=== PATIENT | female | born 1965 | race Caucasian/White ===

== ENCOUNTER 2018-11-09 16:48 | Inpatient (IN) | payer OTHER ==
[2018-11-09] VITALS (9 sets, daily range): BP systolic 80–97; BP diastolic 38–55
--- NOTE | 2018-11-09 17:00 | NUR ---
WHILE AWAITING A ROOM ASSIGNMENT, PT STARTED TO HAVE A "HOT FLASH" WHERE SHE WAS FEELING LIKE SHE WAS SWEATING A LOT. PT STARTED HAVING A SEIZURE WHILE IN THE W/C. CALLED [facility] AND ASKED FOR ASSISTANCE. PT TAKEN TO ROOM 6.
[2018-11-09 18:31] LABS: HEMOGLOBIN 6.8 gm/dL (12.0-15.0); MCH 37.2 pg (26.0-34.0); RDW 18.3 % (10.5-14.5)
[2018-11-09 18:33] LABS: ABSOLUTE NEUTROPHILS 8.6 thou/uL (1.4-8.2); BASOPHILS 0.2 % (0.0-2.0); EOSINOPHILS 0.2 % (0.0-3.0); LYMPHOCYTES 30.7 % (24.0-44.0); MCHC 34.6 g/dL (28.0-37.0); MCV 107.4 fL (80.0-100.0); PLATELET COUNT 103 thou/uL (150-400); POLYS 63.9 % (36.0-66.0); RBC 1.82 mil/uL (4.20-5.00); WBC 13.5 thou/uL (4.0-11.0)
[2018-11-09 18:40] LABS: CALCIUM 9.9 mg/dL (8.5-10.1); CREATININE 1.9 mg/dL (0.6-1.0); POTASSIUM 3.6 mmol/L (3.5-5.1)
[2018-11-09 18:43] LABS: HEMATOCRIT 19.5 % (37.0-47.0); INR 1.5; PROTIME 15.2 Seconds (9.3-11.4)
[2018-11-09 18:45] LABS: ALBUMIN 2.6 g/dL (3.4-5.0); TOTAL BILIRUBIN 8.6 mg/dL (<0.1-1.0); TOTAL PROTEIN 5.9 g/dL (6.4-8.2)
[2018-11-09 19:15] LABS: ANISOCYTOSIS 1+; MACROCYTES 1+
[2018-11-10] VITALS (19 sets, daily range): BP systolic 80–116; BP diastolic 37–59
[2018-11-10 04:58] LABS: MCH 36.7 pg (26.0-34.0); MCHC 35.5 g/dL (28.0-37.0); MCV 103.4 fL (80.0-100.0); RBC 1.8 mil/uL (4.20-5.00); RDW 20.1 % (10.5-14.5); WBC 6.7 thou/uL (4.0-11.0)
[2018-11-10 05:00] LABS: HEMATOCRIT 18.6 % (37.0-47.0); HEMOGLOBIN 6.6 gm/dL (12.0-15.0)
[2018-11-10 05:05] LABS: CREATININE 1.4 mg/dL (0.6-1.0); MAGNESIUM 2.3 mg/dL (1.8-2.4); POTASSIUM 3.9 mmol/L (3.5-5.1)
--- NOTE | 2018-11-10 06:28 | NUR ---
Pt received into room 244 last pm, made comfortable in bed and monitor applied. See rhythm strips. Pt slept well all night with no c/o pain and no further evidence of bleeding. Pt asymptomatic with low BP and more alert this am. HR stable and SpO2 adequate on 4L of O2. Voided per bedpan without difficulty and no BM observed. Am lab results noted and 2nd unit of blood currently infusing. Continue with POC.
[2018-11-10 09:36] LABS: HEMATOCRIT 21.6 % (37.0-47.0); HEMOGLOBIN 7.7 gm/dL (12.0-15.0)
[2018-11-10 12:15] LABS: URINE BILIRUBIN 1+ (Negative); URINE BLOOD 1+ (Negative); URINE CLARITY CLEAR; URINE COLOR YELLOW; URINE GLUCOSE-RANDOM* NEGATIVE (Negative); URINE KETONES NEGATIVE (Negative); URINE NITRITE-REFLEX NEGATIVE (Negative); URINE PROTEIN (DIPSTICK) NEGATIVE (Negative); URINE SPECIFIC GRAVITY <= 1.005 (1.005-1.035)
[2018-11-10 12:16] LABS: URINE LEUKOCYTES-REFLEX 1+ (Negative)
[2018-11-10 12:17] LABS: ICTOTEST (BILI CONFIRMATORY) Positive (Negative)
--- NOTE | 2018-11-10 12:39 | NUR ---
Case opened to follow for support and dc planning. Pt is currently in the ICU with GIB and ethol withdrawal. [employer] Fabricator visited with the pt, her 18 year old dtr and one of her sisters at bedside. The pt was drowsy but able to answer assessment questions. The pt lives at home with her 18yr old dtr who is a senior in high school and her 15 yr old son. 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 She has not worked recently. She has been to [facility] in 2012 for ethol rehab. She is open to discussing options. Pt's dtr reports that they have social security income through her father who . She drives, works and goes to school with plans to graduate in November. She reports her uncle may be coming in town and has offered to assist financially with rehab. Pt has 2 sisters and 2 brothers who appear supportive and helpful to the pt's children. Cm role introduced. Will f/u when the pt is better able to participate in dc planning conversation. [employer] referral started. Pt's 15yr old son will need a medicaid application also. Support provided.
[2018-11-10 12:42] LABS: CASTS None Seen /LPF (None Seen); SQUAMOUS 0-3 Few /LPF (0-3); YEAST-REFLEX Present (None Seen)
[2018-11-10 12:43] LABS: BACTERIA-REFLEX 1-9 Few /HPF (None Seen); CRYSTALS None Seen /LPF (None Seen); URINE RBC 3-10 Few /HPF (0-2); URINE WBC-REFLEX 0-5 Rare /HPF (0-5)
--- NOTE | 2018-11-10 14:09 | NUR ---
FAXED FACE SHEET TO [employer] TO HELP WITH MEDICAID APPLICATION.
[2018-11-10 17:36] LABS: HEMATOCRIT 23.9 % (37.0-47.0); HEMOGLOBIN 8.4 gm/dL (12.0-15.0)
[2018-11-11] VITALS (18 sets, daily range): BP systolic 92–123; BP diastolic 44–73
--- NOTE | 2018-11-11 04:53 | NUR ---
ASSUMED PATIENT CARE AT 1900. PATIENT LYING IN BED AND IS AAOX4 ON RA WITHOUT ANY SIGNS OF DISTRESS. NO COMPLAINTS OF NAUSEA, VIEYRA, AND NO TACTILE TREMORS OR HALLUCINATIONS PRESENT. PATIENT VS REMAINED STABLE THROUGHOUT THIS SHIFT AND NO VOMITING OR DIARRHEA PRESENT. PATIENT PROGRESSING TOWARD GOAL.
[2018-11-11 05:11] LABS: ALBUMIN 2.2 g/dL (3.4-5.0); CREATININE 0.9 mg/dL (0.6-1.0); POTASSIUM 3.7 mmol/L (3.5-5.1); TOTAL BILIRUBIN 6.6 mg/dL (<0.1-1.0); TOTAL PROTEIN 4.7 g/dL (6.4-8.2)
[2018-11-11 06:22] LABS: HEMATOCRIT 22.4 % (37.0-47.0); HEMOGLOBIN 7.8 gm/dL (12.0-15.0); MCH 35.6 pg (26.0-34.0); MCHC 34.8 g/dL (28.0-37.0); MCV 102.3 fL (80.0-100.0); RBC 2.19 mil/uL (4.20-5.00); RDW 22.2 % (10.5-14.5); WBC 4.7 thou/uL (4.0-11.0)
[2018-11-11 06:59] LABS: FOLIC ACID 14.3 ng/mL (8.6-58.9); TSH 0.463 uIU/mL (0.358-3.740)
--- NOTE | 2018-11-11 09:12 | HC ---
[facility] [place] [address] CONSULTATION Name: THANH GORDILLO Room #: 244-P ADM IN M.R.#: [id number] Admission: 11/09/18 ������������������ Attend Phys: Aron Ríos MD Discharge: ������������������ Date of : 63 Report #: [id number] THIS REPORT FOR: //name// CC: Eleno Ríos MD DATE OF SERVICE: 11/10/[address] Aron Ríos and Dr. Eleno Mora. CHIEF COMPLAINT: This is a very pleasant 53-year-old female who came to the hospital for evaluation of possible melena and one episode of hematemesis. The patient is jaundiced. She tried to stop drinking alcohol on her own since last Thursday and so far has been successful, but she is becoming hyperadrenergic and came to the hospital for further evaluation. She is accompanied here by her daughter who is 18 years old and apparently has the full weight of her mother's care on her shoulders and the patient's sister is also present. There is also a son of the patient that exists, but is not present here at the hospital. PAST MEDICAL HISTORY: Significant for hypertension, cerebrovascular accident. She has arthritis. She takes occasional Advil. SOCIAL HISTORY: She also drinks extensively apparently 7 vodka alcoholic beverages a day and she smokes about a pack of cigarettes per day also. PAST SURGICAL HISTORY: Significant for bilateral arthroscopic surgeries on her knees. 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 This was apparently a successful intervention. ALLERGIES: No known drug allergies. MEDICATIONS PRIOR TO THE ADMISSION: None are listed and the patient states that she does not take anything, but an occasional nonsteroidal anti-inflammatory medication. SOCIAL HISTORY: She drinks 6-7 vodkas a day. She smokes 1 pack of cigarettes per day and has done so for 30 years. FAMILY HISTORY: Significant for colon cancer in her father at age 79. Hypertension also runs in the family. The patient denies ever having an EGD or colonoscopy. REVIEW OF SYSTEMS: She denies any dysphagia, odynophagia, gastroesophageal reflux, hiatal hernia, peptic ulcer disease. She has had nausea and vomiting [facility] [address] [place] [address] CONSULTATION Name: THANH GORDILLO Room #: 244-P [facility] IN ..#: [id number] Admission: 11/09/18 ������������������ Attend Phys: Aron Ríos MD Discharge: ������������������ Date of : 63 Report #: [id number] and some hematemesis. She may have had some melena. She thinks her stools are darker than normal, but she does not call them black or maroon. She said her weight has been stable and up until now, her appetite has been good, but she has been unable to eat much and has been anorectic over the last several days. This has probably been what has forced her to stop drinking. She denies any history of jaundice, hepatitis, pancreatitis or gallbladder trouble. She describes alternating constipation and diarrhea and apparently takes Ex-Lax p.r.n. for constipation. She denies any abdominal pain. PHYSICAL EXAMINATION: GENERAL: Reveals a well-developed, marginally nourished 53-year-old white female, in no apparent distress at the time of the examination, who is awake, alert, oriented x 4 and cooperative and very pleasant to converse with. She is somewhat tremulous. HEENT: She is normocephalic and atraumatic, but she is icteric. HEART: Rate and rhythm are regular with a normal S1 and S2. LUNGS: Clear bilaterally. ABDOMEN: Soft. Bowel sounds are present in all 4 quadrants. There is no palpable splenomegaly. There is palpable hepatomegaly. There is tenderness to palpation of the hepatomegaly. There is no rebound or guarding. She does not appear to have any type of recognizable ascites at this point. She is tender to palpation on the right upper quadrant. This may be secondary to an enlarged gallbladder. VITAL SIGNS: Currently, blood pressure is 90/49, temperature 98.8, pulse 99 and respirations are 15, oxygen sat is 97% on room air. LABORATORY DATA: Sodium was 119 on admission, up to 123 at this point. BUN was 53 on admission, down to 49. Creatinine was 1.9, it is down to 1.4 overnight. Her AST is 277, ALT 141, alkaline phosphatase 425. Total bilirubin is 8.6. Lipase is 654. She has no ductal dilatation described on imaging studies, but her gallbladder is enlarged and this may be from her n.p.o. status. Albumin is 2.6. INR is 1.5. White count 6.7, hemoglobin was 6.8 on admission. She has had 2 units of packed cells infused overnight. There has been no further evidence of any GI blood loss. MCV is 107 on admission, MCH 37, MCHC 35, RDW 20.1, platelets were down to 61,000 today. Abdominal ultrasound shows prominent spleen of 13 cm. Liver was enlarged 20 cm. There is diffuse fatty infiltration with increased echogenicity. No focal lesions mentioned. Kidneys are normal. Gallbladder is 13 cm and bile duct 5 mm. IMPRESSION: 1. Alcoholic hepatitis and probable end-stage liver disease. 2. Hematemesis and melena. 3. Anemia, macrocytic with an MCV of 107, RDW of 20.1 and her iron levels are normal. Hemoglobin 6.8, transfused to 7.7. 4. Constipation alternating with diarrhea. 5. Hyponatremia. Sodium 119, up to 123 overnight. [facility] [address] [place] [address] CONSULTATION Name: THANH GORDILLO Room #: 244-P ADM IN M.R.#: [id number] Admission: 11/09/18 ������������������ Attend Phys: Aron Ríos MD Discharge: ������������������ Date of : 63 Report #: [id number] 6. Tenderness in the right upper quadrant. 7. Hypertension. 8. History of a cerebrovascular accident. 9. Arthritis. The patient takes NSAIDs occasionally. 10. Smoker. 11. Family history of colon cancer in father at age 79. 12. The patient has an enlarged gallbladder with right upper quadrant pain. 13. Two diffusers were placed surgically in her C-spine due to neuropathic pain in her arm. RECOMMENDATIONS: As follows: The patient has been having darker stools and an episode of hematemesis at home and is in acute alcohol withdrawal at this time. She does need an EGD, but she is still coming to equilibrium. She has not had obvious blood loss since arriving at the hospital. She has never had an EGD or colonoscopy and needs both of these done, though the colonoscopy is less urgent at this time and will require a prep that she could not probably tolerate right now. We will plan on EGD in the morning. The patient is agreeable with this. In the meantime, we will continue the antibiotics, octreotide and a PPI drip. Monitor her vital signs carefully and recheck her liver enzymes, H and H, INR, folate, TSH, alpha fetoprotein in the morning. We will also guaiac her stools. Monitor his CIWA score and treat as needed for acute alcohol withdrawal. We will keep her n.p.o. after midnight, obtain consent for EGD. We will schedule her for EGD in the morning. Monitor H and H q. 8 hours, would consider a PIPIDA scan if her right upper quadrant pain persists because her gallbladder is enlarged, although this just may be from her n.p.o. status. She is at high risk of full blown DTs. Thank you very much once again for allowing me to participate in her care, Dr. Ríos. ��������������������������������������������� <ELECTRONICALLY SIGNED> ���������������������������������������� By: Laura Romero DO ��������������������������������������������� 11/11/18 0912 [id number] Laura Romero DO /nt
--- NOTE | 2018-11-11 19:15 | NUR ---
Alert and oriented. Up in chair much of the day and now resting in bed. Ambulated in room with assist. Gait slightly unsteady. CIWA scores low. No Ativan required. Sinus rhythm. Room air. Pt drinking bowel prep for colonoscopy tomorrow. Consent signed for procedure along with EGD. NPO after midnight. Continues on Octreotide, Protonix and maintenance fluids. No evidence of bleeding. Sisters at bedside most of the shift. Report given to oncoming nurses.
[2018-11-12] VITALS (13 sets, daily range): BP systolic 87–179; BP diastolic 51–112
--- NOTE | 2018-11-12 04:23 | NUR ---
ASSUMED PATIENT CARE AT 1900. PATIENT SITTING UP IN BED AND NO SIGNS OF DISTRESS IS NOTED. PATIENT IS BOWEL PREPPING FOR EGD/COLONOSCOPY TOMORROW. PATIENT NPO AFTER MIDNIGHT. REPORT CALLED AND PATIENT TRANSFERRED TO CCU AT 0330.
[2018-11-12 05:10] LABS: HEMOGLOBIN 8.1 gm/dL (12.0-15.0); MCH 35.3 pg (26.0-34.0); MCV 103.7 fL (80.0-100.0); RBC 2.31 mil/uL (4.20-5.00); RDW 23.4 % (10.5-14.5); WBC 4.9 thou/uL (4.0-11.0)
--- NOTE | 2018-11-12 05:15 | NUR ---
PT. TRANSFERED FROM ICU AT 0400; PT. AOX4; NO C/O PAIN; ST. PASSING GAS; NPO AFTER MIDNIGHT; FINE TREMORS; CEWA=2; LAST BM 11/12/18 BEFORE COMMING TO ICU; SBP ON THE 90'S; NO C/O N/V; ASSESSMENT CHARGED; FOLLOWING POC; WILL PASS ON REPORT.
--- NOTE | 2018-11-12 15:34 | NUR ---
DR. TREVIZO ORDERED CONTINUED OCTREOTIDE FOR 24 HOURS DUE TO BLEEDING VARICE (THAT WAS BANDED). CALLED DR. BURTON REGARDING URINE YEAST RESULTS AND HE ORDERED DIFLUCAN 4 DOSES.
--- NOTE | 2018-11-12 16:20 | NUR ---
Followup visit made with the pt and her two sisters at bedside to discuss resources and dc planning needs. Pt had EGD/COLON today. She is out of ICU and able to participate in dc planning conversation. Ethol treatment options discussed. Pt appears more interested in an outpt tx program. Family pressing her to focus on inpt tx and they may be willing to finance this as the pt does not have insurance coverage. [facility] clinic info and mental health resources provided. Pt is family with [facility]. Pt appeared jaundice today. Appeared impulsive trying to get up and down during conversation. Pt is working with therapy. Will see if she needs any dme. Sisters to reach out to check cost of varies programs. Will follow.
--- NOTE | 2018-11-12 18:25 | NUR ---
ASSUMED CARE OF PT AT 0700. PT WAS A&OX4, CALM, DISPLAYING FINE TREMORS IN THE HANDS. PT HAD CLEAR LUNG SOUNDS AND S1,S2 HEART SOUNDS. PT WAS TAKEN FOR EGD AND COLONOSCOPY AT 1100. PT RETURNED TO FLOOR AT 1330. PT WAS PLACED ON FULL LIQUID DIET AFTER PROCEDURE AND PT PT WAS ABLE TO EAT 3/4 OF DINNER AND DID NOT HAVE EMESIS AFTER EATING. PT SHOWED NO SIGNS OF ASPIRATION.
--- NOTE | 2018-11-12 20:01 | NUR ---
AGREE WITH STUDENT NURSE SEAN'S ASSESSMENTS AND NOTES, MELVI TAVERAS RN
[2018-11-13 00:37] VITALS: BP 92/63
--- NOTE | 2018-11-13 05:36 | NUR ---
RECEIVED PT'S CARE AROUND 1920; AOX4; ON BED; NO C/O PAIN; DRINKING WATER; SBP ON 101 EARLY ON THE NIGHT AND 92 EARLY ON THE MORNING; HR WNL; ABLE TO AMBULATE TO RESTROOM WITH STAND BY X2; CIWA ASSESSMENT 2; ABLE TO REST THROUGH THE NIGHT WITH EYES CLOSED; ST. NO COUGHIN BLOOD; ST. NO DIZZINESS; NO HEADACHE; HAND IV DRESSING CHANGED; ASSESSMENT CHARGED; FOLLOWING POC; WILL PASS ON REPORT.
[2018-11-13 05:37] VITALS: BP 100/68
[2018-11-13 08:17] VITALS: BP 98/61
[2018-11-13 12:25] VITALS: BP 101/73
[2018-11-13 15:56] VITALS: BP 94/65
--- NOTE | 2018-11-13 17:00 | NUR ---
TRANSFER TO ROOM 227 VIA WHEEL CHAIR WITH BELONGINGS NO ISSUES OR CONCERNS NOTED AT THIS TIME . REPORT GIVNE TO RN TO ASSUME CARE.
--- NOTE | 2018-11-13 18:07 | NUR ---
TRANSFERRED FROM CCU ROOM 213 TO ROOM 227 AT 1700, DENIES ANY CONCERNS AT THIS MOMENT. LOOKING FORWARD TO DINNER PATIENT HAS BEEN NPO FOR A WHILE. WILL CONTINUE TO ASSESS AND ASSIST WITH ADLs NEEDED.
[2018-11-13 19:37] VITALS: BP 102/67
--- NOTE | 2018-11-14 03:42 | NUR ---
ASSUMED CARE OF PATIENT AT 1900. VSS. ASSESSMENT COMPLETED AT 2036 AND IS DOCUMENTED. PT CONTINUES TO BE HYPOTENSIVE BUT ASYMPTOMATIC. PT TOLERATED DINNR WELL. LBM: 11/12. RIGHT FA AND RIGHT HAND IV PATENT AND SALINE LOCKED. PT CURRENTLY SLEEPING SOUNDLY IN BED IN NO ACUTE DISTRESS. CALL LIGHT WITHIN REACH. BED LOCKED AND IN LOWEST POSITION. WCTM.
--- NOTE | 2018-11-14 04:16 | NUR ---
THIS NURSE AGREES WITH ASSESSMENT AND NOTES BY RESERVOIR CARETAKER ON THIS PATIENT.
[2018-11-14 06:47] LABS: ALBUMIN 2.1 g/dL (3.4-5.0); CALCIUM 8.2 mg/dL (8.5-10.1); CREATININE 0.8 mg/dL (0.6-1.0); POTASSIUM 3.9 mmol/L (3.5-5.1); TOTAL BILIRUBIN 4.8 mg/dL (<0.1-1.0); TOTAL PROTEIN 5.3 g/dL (6.4-8.2)
[2018-11-14 08:00] VITALS: BP 105/69
--- NOTE | 2018-11-14 10:40 | NUR ---
PT IS A&0X4, UP AD MISSY STEADY, IN GOOD SPIRITS, ENCOURAGED HER TO USE CALL LIGHT FOR ANY NEEDS, SEE INTERVENTION FOR ASSESSMENT, PHYSICIAN GAVE PERMISSION FOR HER TO SIT OUTSIDE W/HER FAMILY WHEN THEY COME UP TO VISIT. WILL CONTINUE TO MONITOR AND WALK W/HER IN HALLS
[2018-11-14 19:01] VITALS: BP 111/69
--- NOTE | 2018-11-15 05:22 | NUR ---
PATIENT ALERT AND ORIENTED X4. DENIES PAIN. UP AD MISSY. OUTSIDE WITH SON. SOME EDEMA NOTED IN ABD AND LOWER EXT. NO SIGNS OF ETOH WITHDRAWL. SLEPT MOST OF THE NIGHT.
[2018-11-15 07:29] VITALS: BP 100/68
--- NOTE | 2018-11-15 12:23 | NUR ---
DISCHARGE NOTE: SW reviewed chart and spoke with nursing and attending physician. Pt was transferred to [facility] from [facility] and is medically stable for discharge today. SW met with pt and family at bedside to discuss discharge plan. Pt has contacted [facility] in [place], [place] and they are able to admit pt today. SW spoke with intake and faxed requested clinical info (face sheet, H&P, GI consult, labs and med list). Confirmed with intake that they are able to accept pt today. Nursing to call report when pt is discharged. Pt's family to provide transportation to [facility]. CASI updated attending physician and GI [employer] TEACHER. No additional SW needs identified at this time, but is availbale to assist should needs arise. [facility]--
[2018-11-15] MEDS ORDERED: ALDACTONE50 MG PO (12:27)
--- NOTE | 2018-11-15 12:50 | NUR ---
ASSUMED CARE OF PATIENT THIS MORNING. PATIENT IS A&OX4. SHE HAS BEEN GETTING UP AD MISSY. SHE DOES NOT COMPLAIN OF ANY PAIN. PATIENT WILL BE DISCHARED THIS AFTERNOON WITH ONE PRESCRIPTION FOR SPIRONOLACTONE. SHE WILL BE GOING TO A ADDICTION TREATMENT FACILITY, [facility]. PATIENT HAS TAKEN HER TWO MORNING MEDICATIONS AND TOLERATED THEM. HER LAST BOWEL MOVEMENT WAS YESTERDAY. SHE HAS TWO IV'S THAT ARE SALINE LOCKED AND WILL BE REMOVED BEFORE DISCHARGE. SHE IS CURRENTLY LYING IN BED, WITH HER SISTER AT THE BEDSIDE. SHE CALLS OUT APPROPRIATELY FOR NEEDED ASSISTANCE.
--- NOTE | 2018-11-15 15:55 | NUR ---
I AGREE WITH NURSING ASSESSMENT DONE BY MERVAT/CHRIS.
--- NOTE | 2018-11-15 17:15 | NUR ---
PATIENT DISCHARGED WITH ONE SCRIPT. REPORT CALLED TO TREATMENT FACILITY. DISCHARGED INSTRUCTIONS REVIEWED WITH PATIENT AND PATIENT SIGNED IN AGREEANCE. 2 IV'S WERE REMOVED. PATIENT'S FAMILY PICKED HER UP TO TAKE TO THE FACILITY.
--- NOTE | 2018-11-15 17:25 | NUR ---
I AGREE WITH NURSING ASSESSMENT DONE BY MERVAT/CHRIS, AND NURSING NOTE.
--- NOTE | 2018-11-15 18:05 | PATH ---
[facility] [place] [address] PATHOLOGY RPT PROCEDURE Name: EMANUELTERRYAMANDA Room #: 227-P DIS IN M.R.#: [id number] ������������������ Admission: 11/09/18 ������������������ Date of : 63 Discharge: 11/15/18 Report #: [id number] Path Case #: [id number] [facility] Accession Number: [id number] . 01 Material submitted: . sigmoid colon - BIOPSY POLYP AT SIGMOID COLON . 01 Clinical history: . Pre-OP DX: Melena, GI bleed Post-OP DX: Esophageal varices, portal htn gastropathy, colon polyp, hemorrhoids . 02 Diagnosis: Polyp, at sigmoid colon, endoscopic biopsy: - Hyperplastic polyp. - Negative for dysplasia. (IUV:pit 11/15/2018) QTP/11/15/2018 . 02 Electronically signed: . Bri Morillo MD, Pathologist NPI- [id number] . 01 Gross description: . Received in formalin labeled "Amanda Gray, BX polyp at sigmoid colon," are 2 segments of cabrera soft tissue measuring 0.5 x 0.2 x 0.2 cm in aggregate dimensions and ranging from 0.2 to 0.3 cm in maximum dimension. The specimen is submitted entirely in cassette A1. (TSD; 11/12/2018) TOB/TOB . 02 Pathologist provided ICD-10: K63.5 . 02 CPT . 605745 Specimen Comment: A courtesy copy of this report has been sent to Specimen Comment: [phone], . Specimen Comment: Report sent to / DR BURTON Performed at: [address], [place] [id number] MD Dmitriy Deal MD Phone: [phone] Performed at: [address] [id number] MD Bri Morillo MD Phone: [phone]
== END 2018-11-15 17:26 | disposition short-term general hospital (02) | DRG 432 ==
LOC: ER 16:48 → 2N 19:08 → EROBS 19:08 → ICU 19:52 → 2N 11-12 04:21 → SICU 11-13 17:06 → ENTRNSPT 11-15 16:34 → SICU 11-15 17:26
PROVIDERS: Emergency Medicine; Internal Medicine Gastroenterology; ADMIT Family Medicine
PROC: 30233N1 Transfusion of Nonautologous Red Blood Cells into Peripheral Vein, Percutaneous Approach (ICD-10-PCS; principal; 2018-11-09)
PROC: 06L38CZ Occlusion of Esophageal Vein with Extraluminal Device, Via Natural or Artificial Opening Endoscopic (ICD-10-PCS; 2018-11-12)
PROC: 0DBN8ZZ Excision of Sigmoid Colon, Via Natural or Artificial Opening Endoscopic (ICD-10-PCS; 2018-11-12)
DX: K70.30 Alcoholic cirrhosis of liver without ascites (principal); I85.11 Secondary esophageal varices with bleeding; E87.1 Hypo-osmolality and hyponatremia; N17.9 Acute kidney failure, unspecified; K76.6 Portal hypertension; F10.230 Alcohol dependence with withdrawal, uncomplicated; I10 Essential (primary) hypertension; F32.9 Major depressive disorder, single episode, unspecified; F41.9 Anxiety disorder, unspecified; I95.9 Hypotension, unspecified; K70.10 Alcoholic hepatitis without ascites; D53.9 Nutritional anemia, unspecified; D50.0 Iron deficiency anemia secondary to blood loss (chronic); K31.89 Other diseases of stomach and duodenum; K63.5 Polyp of colon; K64.4 Residual hemorrhoidal skin tags; K64.8 Other hemorrhoids; M19.90 Unspecified osteoarthritis, unspecified site; F17.210 Nicotine dependence, cigarettes, uncomplicated; G62.9 Polyneuropathy, unspecified; K59.00 Constipation, unspecified; Z86.73 Personal history of transient ischemic attack (TIA), and cerebral infarction without residual deficits; Z79.899 Other long term (current) drug therapy; Z80.0 Family history of malignant neoplasm of digestive organs; Z82.49 Family history of ischemic heart disease and other diseases of the circulatory system
CPT/HCPCS: 10078; 10081; 15002; 62110; 62900

== ENCOUNTER → 2018-12-09 | Outpatient (CLI) | payer OTHER ==
[~2018-12-09] VITALS: Ht 165.1 cm; Wt 77.1 kg
[~2018-12-09] MED LIST: ALDACTONE50 MG PO
[2018-12-09 08:35] VITALS: BP 105/69
[2018-12-09 09:27] LABS: HEMATOCRIT 28.6 % (37.0-47.0); HEMOGLOBIN 9.5 gm/dL (12.0-15.0); MCH 32.4 pg (26.0-34.0); MCHC 33.2 g/dL (28.0-37.0); MCV 97.7 fL (80.0-100.0); RBC 2.93 mil/uL (4.20-5.00); RDW 18.1 % (10.5-14.5)
[2018-12-09 09:36] LABS: CREATININE 0.7 mg/dL (0.6-1.0); POTASSIUM 4.3 mmol/L (3.5-5.1)
[2018-12-09 09:39] LABS: INR 1.1
== END | disposition home or self-care (01) ==
LOC: SPEC 07:39
PROVIDERS: Radiology Vascular & Interventional Radiology
DX: R18.8 Other ascites (principal); I10 Essential (primary) hypertension; K75.9 Inflammatory liver disease, unspecified; F41.9 Anxiety disorder, unspecified; F32.9 Major depressive disorder, single episode, unspecified; F17.210 Nicotine dependence, cigarettes, uncomplicated; Z98.890 Other specified postprocedural states; Z79.899 Other long term (current) drug therapy; Z86.73 Personal history of transient ischemic attack (TIA), and cerebral infarction without residual deficits

== ENCOUNTER → 2019-05-02 | Outpatient (CLI) | payer OTHER | LOC: ULTRA 07:49 | DX: R16.2 Hepatomegaly with splenomegaly, not elsewhere classified (principal); K70.31 Alcoholic cirrhosis of liver with ascites ==

== ENCOUNTER → 2019-12-16 | Outpatient (CLI) | payer OTHER | LOC: ULTRA 07:47 | DX: R16.2 Hepatomegaly with splenomegaly, not elsewhere classified (principal); K70.31 Alcoholic cirrhosis of liver with ascites ==